=== PATIENT | male | born 1970 ===

== ENCOUNTER 2017-06-27 09:47 | Day surgery (SDC) | payer OTHER ==
--- NOTE | 2017-06-23 14:13 | NUR ---
PRE-ADMIT PHONE CALL
[~2017-06-27] VITALS: Ht 180.3 cm; Wt 153.3 kg
[~2017-06-27 09:47] MED LIST: AZOPT10 ML OD; COMBIGAN EYE DRO5 ML OD; LAMICTAL150 MG PO; XALATAN2.5 ML OPTH; ZYRTEC10 MG PO
== END 2017-06-27 12:29 | disposition home or self-care (01) ==
LOC: OPS 09:47 → DSVR 09:47 → OPS 11:15 → DS 11:15 → OPS 12:29
PROVIDERS: Ophthalmology
PROC: 08RK3JZ Replacement of Left Lens with Synthetic Substitute, Percutaneous Approach (ICD-10-PCS; principal; 2017-06-27 11:15)
DX: H25.12 Age-related nuclear cataract, left eye (principal); I10 Essential (primary) hypertension; F32.9 Major depressive disorder, single episode, unspecified; Z90.89 Acquired absence of other organs; Z87.891 Personal history of nicotine dependence; Z98.890 Other specified postprocedural states; Z88.8 Allergy status to other drugs, medicaments and biological substances; Z79.899 Other long term (current) drug therapy
CPT/HCPCS: 00140; J2250

== ENCOUNTER 2017-08-24 08:44 | Day surgery (SDC) | payer OTHER ==
[~2017-08-24] VITALS: Ht 180.3 cm; Wt 153.3 kg
[~2017-08-24 08:44] MED LIST changes: +LISINOPRIL20 MG PO
== END 2017-08-24 11:37 | disposition home or self-care (01) ==
LOC: OPS 08:44 → DS 08:44 → OPS 11:37
PROVIDERS: Ophthalmology
PROC: 08RJ3JZ Replacement of Right Lens with Synthetic Substitute, Percutaneous Approach (ICD-10-PCS; principal; 2017-08-24 10:00)
DX: H25.11 Age-related nuclear cataract, right eye (principal); Q15.0 Congenital glaucoma; I10 Essential (primary) hypertension; F32.9 Major depressive disorder, single episode, unspecified; Z90.89 Acquired absence of other organs; Z87.891 Personal history of nicotine dependence; Z98.890 Other specified postprocedural states; Z88.8 Allergy status to other drugs, medicaments and biological substances
CPT/HCPCS: J2250